=== PATIENT | female | born 1985 | race African-American/Black ===

== ENCOUNTER 2018-04-17 10:00 | Emergency (ER) | payer MEDICAID ==
[~2018-04-17] VITALS: Ht 167.6 cm; Wt 90.7 kg
[2018-04-17 15:18] LABS: BASOPHILS % 0.4 % (0.0-2.0); EOSINOPHILS % 0.2 % (0.0-5.0); HEMOGLOBIN. 9.8 g/dL (12.0-16.0); LYMPHOCYTES % 31.1 % (20.0-50.0); MEAN CORPUSCULAR VOLUME 64.9 fL (81.0-99.0); MEAN PLATELET VOLUME 7.4 fl (7.4-10.4); NEUTROPHILS % 63.3 % (40.0-76.0); PLATELET 383 x1000/uL (130-400); RED BLOOD CELL COUNT 4.47 mill/uL (4.2-5.4); RED CELL DISTRIBUTION WIDTH 18.6 % (11.6-14.6)
[2018-04-17 15:20] LABS: CHLORIDE 107 mEq/L (98-107)
[2018-04-17 16:50] LABS: PLATELET ESTIMATE NORMAL
[2018-04-17 17:17] VITALS: BP 132/78
== END 2018-04-17 17:28 | disposition home or self-care (01) ==
LOC: ER 10:10
DX: R53.1 Weakness (principal); D64.9 Anemia, unspecified; F41.9 Anxiety disorder, unspecified
CPT/HCPCS: 36415; 86850; 86900; 99283

== ENCOUNTER 2018-10-02 05:35 | Emergency (ER) | payer MEDICAID ==
[~2018-10-02] VITALS: Ht 167.6 cm; Wt 104.0 kg
[2018-10-02 07:06] VITALS: BP 126/84
== END 2018-10-02 07:08 | disposition home or self-care (01) ==
LOC: ER 05:35
DX: F41.1 Generalized anxiety disorder (principal); R07.2 Precordial pain; R20.2 Paresthesia of skin; R06.4 Hyperventilation; D64.9 Anemia, unspecified; F15.10 Other stimulant abuse, uncomplicated; F32.9 Major depressive disorder, single episode, unspecified
CPT/HCPCS: 99284